=== PATIENT | male | born 1995 | race Caucasian/White ===

== ENCOUNTER → 2022-08-02 09:22 | Outpatient (BNVA) | payer BC, SELFPAY | PROVIDERS: Family Provider Nurse Practitioner Family; Visit Provider Nurse Practitioner Family | DX: L50.0 Allergic urticaria (principal); Z91.09 Other allergy status, other than to drugs and biological substances; Z23 Encounter for immunization | CPT/HCPCS: 86003; 86008 ==

== ENCOUNTER → 2023-02-26 10:18 | Outpatient (BNVA) | payer BC, SELFPAY | PROVIDERS: Family Provider Nurse Practitioner Family; PCP Nurse Practitioner Family; Visit Provider Nurse Practitioner Family | DX: Z13.29 Encounter for screening for other suspected endocrine disorder (principal); Z91.09 Other allergy status, other than to drugs and biological substances; R73.9 Hyperglycemia, unspecified | CPT/HCPCS: 80053; 83036; 84443; 85025; 86003 ==

== ENCOUNTER 2023-08-27 20:00 | Outpatient (CLI) | payer BC, SELFPAY | END 2023-08-27 20:01 | disposition home or self-care (01) | LOC: SLEEP 08-28 05:45 | PROVIDERS: Family Provider Nurse Practitioner Family; PCP Nurse Practitioner Family; Visit Provider Nurse Practitioner Family | DX: G47.33 Obstructive sleep apnea (adult) (pediatric) (principal); R06.83 Snoring; R53.83 Other fatigue | CPT/HCPCS: 95810 ==